=== PATIENT | female | born 1985 | race Caucasian/White ===

== ENCOUNTER 2025-02-05 02:00 | Emergency (ER) | payer BC ==
[~2025-02-05] VITALS: Ht 165.1 cm; Wt 99.8 kg
[2025-02-05] MEDS: ONDANSETRON 4 MG/2 ML VIAL IV ONE (02:35)
[2025-02-05] MEDS: IV NORMAL SALINE 1000 ML BAG IV ONE (02:35)
[2025-02-05 02:40] LABS: PLATELET COUNT (AUTO) 307 K/uL (179-408); RED BLOOD CELL COUNT(AUTO) 4.84 MIL/uL (3.63-4.92); RED CELL DISTRIBUTION WIDTH 16.9 % (12.3-17.7); WHITE BLOOD COUNT (AUTO) 9.2 K/uL (3.8-11.8)
[2025-02-05 02:42] LABS: *BILIRUBIN,URIN NEGATIVE (NEGATIVE); *BLOOD, URINE NEGATIVE (NEGATIVE); *CLARITY,URINE CLEAR (CLEAR); *COLOR,URINE YELLOW (YELLOW); *KETONES,URINE TRACE (NEGATIVE); *PROTEIN,URINE NEGATIVE (NEGATIVE); *URINE HCG, QUAL NEGATIVE (NEGATIVE); *UROBILINOGEN,URINE 0.2 E.U./dl (NORMAL); LEUKOCYTE ESTERASE ,URINE NEGATIVE (NEGATIVE); NITRITE, URINE NEGATIVE (NEGATIVE); UGLUCOSE NEGATIVE (NEGATIVE)
[2025-02-05] MEDS: MORPHINE SULFATE 4 MG/1 ML DISP.SYRIN IV ONE (02:42)
[2025-02-05 02:50] LABS: CREATININE 0.5 mg/dL (0.6-1.3); SODIUM SERUM 141 mmol/L (136-145); UREA NITROGEN, BLOOD 11 mg/dL (7-18)
[2025-02-05 02:55] LABS: ASPARTATE AMINOTRANSFERASE 19 U/L (15-37); TOTAL PROTEIN, SERUM 6.9 g/dL (6.4-8.2)
[2025-02-05] MEDS ORDERED: IOHEXOL 300MG/ML 100 ML INFUS..BTL ONE (03:00)
[2025-02-05] MEDS ORDERED: IV NORMAL SALINE 250 ML IV ONE (03:00)
[2025-02-05] MEDS ORDERED: SWABABLE VALVE TRANSFER SET EA MC ONE (03:00)
[2025-02-05] MEDS ORDERED: KETOROLAC TROMETHAMINE 15 MG INJ ONE (03:18)
[2025-02-05] MEDS: KETOROLAC TROMETHAMINE 15 MG INJ IVP ONE (03:22)
[2025-02-05 05:45] VITALS: BP 119/70
[2025-02-05] MEDS ORDERED: ONDA4TAB11 PO (06:34)
[2025-02-05 06:56] VITALS: BP 122/68; O2SAT 98
== END 2025-02-05 06:48 | disposition home or self-care (01) ==
LOC: ER 02:18
DX: R10.21 Pelvic and perineal pain right side (principal); R10.31 Right lower quadrant pain; R11.0 Nausea; Z88.2 Allergy status to sulfonamides; Z91.018 Allergy to other foods; Z91.040 Latex allergy status
CPT/HCPCS: 36415; 83690; 84703; 85025; A4606; A4663; J1885; J2270; J2405; J7040; Q9967